=== PATIENT | female | born 1995 | race Caucasian/White ===

== ENCOUNTER 2018-06-20 13:26 | Emergency (ER) | payer BC ==
[2018-06-20] MEDS ORDERED: Silver Sulfadiazine 1% Cream 50 GM JAR ONE (13:34)
[2018-06-20 13:40] LABS: Pregnancy Test - Urine (BHCG) Negative (Negative)
[2018-06-20 13:41] LABS: Pregu Control Background? CLEAR/WHITE (CLR/WHITE); Pregu Control Bar Appear? YES (CONTROL BAR)
[2018-06-20] MEDS ORDERED: Ketorolac Tromethamine 60 MG/2 ML VIAL ONE (13:48)
[2018-06-20] MEDS ORDERED: Adacel (T-DAP) 0.5 ML SYRINGE ONE (13:55)
== END 2018-06-20 14:15 | disposition home or self-care (01) ==
LOC: SCSER 13:26
DX: T25.212A Burn of second degree of left ankle, initial encounter (principal); F17.210 Nicotine dependence, cigarettes, uncomplicated; X10.2XXA Contact with fats and cooking oils, initial encounter
CPT/HCPCS: 16020; 81025; 90471; 90715; 96372; J1885